=== PATIENT | female | born 1935 | race Caucasian/White ===

== ENCOUNTER 2020-04-23 08:15 | Inpatient (IN) | payer OTHER, MEDICAID ==
[~2020-04-23] VITALS: Ht 157.5 cm; Wt 40.4 kg
[2020-04-23 08:17] VITALS: BP 113/77
[2020-04-23] MEDS ORDERED: DECADRON6 MG PO (08:28)
[2020-04-23] MEDS ORDERED: MELATONIN3 M1 PO (08:28)
[2020-04-23] MEDS ORDERED: KIDS VITAMIN D10 MCG PO (08:29)
[2020-04-23] MEDS ORDERED: ZINC SULFATE220 MG PO (08:30)
[2020-04-23] MEDS ORDERED: VITAMIN C500 M1 PO (08:30)
[2020-04-23] MEDS ORDERED: REQUIP5 MG PO (08:31)
[2020-04-23] MEDS ORDERED: LIDOCAINE PAIN1 EACH (08:31)
[2020-04-23] MEDS ORDERED: PERCOCET 5-3251 EACH PO (08:31)
[2020-04-23] MEDS ORDERED: REMERON 30 MG T30 M1 PO (08:32)
[2020-04-23] MEDS ORDERED: MORPHINE 00.5 MG/1 M PO (08:32)
[2020-04-23] MEDS ORDERED: MIRALAX119 GM PO (08:32)
[2020-04-23] MEDS ORDERED: HYDRALAZINE 2525 MG PO (08:33)
[2020-04-23] MEDS ORDERED: MIRAPEX0.125 MG PO (08:33)
[2020-04-23] MEDS ORDERED: MILK OF MA400 MG/5 M PO (08:33)
[2020-04-23] MEDS ORDERED: LOPERAMIDE2 MG PO (08:33)
[2020-04-23] MEDS ORDERED: CARBIDOPA-LEVO1 EA10 PO (08:34)
[2020-04-23] MEDS ORDERED: NEURONTIN100 MG PO (08:34)
[2020-04-23 08:35] LABS: HEMATOCRIT 37.4 % (37.0-47.0); HEMOGLOBIN 12.3 gm/dL (12.0-15.0); MCH 30.8 pg (26.0-34.0); MCHC 32.9 g/dL (28.0-37.0); MCV 93.6 fL (80.0-100.0); MPV 7.9 fl. (7.2-11.1); NUCLEATED RBCS 0 /100WBC; PLATELET COUNT* 205 thou/uL (150-400); RDW-CV 13.3 % (10.5-14.5); WBC 6.9 thou/uL (4.0-11.0)
[2020-04-23 08:46] LABS: CALCIUM 8.4 mg/dL (8.5-10.1); CREATININE 1.1 mg/dL (0.6-1.3); POTASSIUM 3.3 mmol/L (3.5-5.1)
[2020-04-23 08:51] LABS: ALBUMIN 2.7 g/dL (3.4-5.0); TOTAL BILIRUBIN 0.2 mg/dL (<0.1-1.0); TOTAL PROTEIN 6.7 g/dL (6.4-8.2)
[2020-04-23 09:01] LABS: INFLUENZA A ANTIGEN Negative (Negative); INFLUENZA B ANTIGEN Negative (Negative)
[2020-04-23 09:02] LABS: ABSOLUTE LYMPHOCYTES 0.1 thou/uL (0.8-5.3); ABSOLUTE MONOCYTES 0.1 thou/uL (0.0-1.2); ABSOLUTE NEUTROPHILS 6.8 thou/uL (1.6-8.1); PLATELET ESTIMATE ADEQUATE
[2020-04-23 14:49] VITALS: BP 108/60
--- NOTE | 2020-04-23 15:12 | EKG ---
[place] [address] ELECTROCARDIOGRAM REPORT Name: LONNYSAMEERJose Elias Nehemiah Room: [place] [address] ADM IN [facility]#: [id number] Admission: 04/23/20 Attend Phys: Hi Walden, Discharge: Date of : 39 Date of Service: 04/23/20 1234 Report #: [id number] THIS REPORT FOR: //name// [facility] ED Test Date: 2020-04-23 Test Time: 12:34:14 Pat Name: BRITNEY MUKHERJEE Department: Room: [facility] Gender: F Pastry Cook Helper: ZI : 1935 Requested By: Lee Nichols Order Number: [id number] MD: Raulito Cuevas Measurements Intervals Colona Rate: 77 P: -22 CA: 172 QRS: -41 QRSD: 72 T: 32 QT: 387 QTc: 438 Interpretive Statements Sinus rhythm wandering baseline Abnormal R-wave progression, early transition Inferior infarct, old No previous ECG available for comparison Electronically Signed On 04-23-2020 15:12:49 SENIOR REPORT DEVELOPER by Raulito Cuevas [email or web address] <ELECTRONICALLY SIGNED> By: Raulito Cuevas MD, FAC 04/23/20 1512 1234 1234 Raulito Cuevas MD, [facility] /EPI
[2020-04-23 15:14] VITALS: BP 108/60
[2020-04-23 16:28] VITALS: BP 107/58
--- NOTE | 2020-04-23 17:00 | NUR ---
DR. GUTIERREZ MAKING ROUNDS TODAY STATED HE PUT ORDER IN FOR CONVELESANT PLASMA TO BE GIVING TO PT. HE CALLED [facility] AND GOT CONSENT TO GIVE IT HE STATED TO PUT THE PAPER WORK ON THE CHART AND HE WILL SIGN IT IN AM.
--- NOTE | 2020-04-23 19:10 | NUR ---
PT A&OX2-3, VSS. PT TO UNIT APPROX 1645. REPORT FROM JOSE PICKETT 1617. CONVALESCENT PLASMA ORDERED. CALL REC'D 184 PLASMA READY, TRE RN TO ADMINISTER. PT REQUIRES ASSISTANCE AT MEALS. BILAT HEELS ELEVATED, PT Q2H TURNS FOR SKIN INTEGRITY. IV TO LFA, NS INFUSING. PT REMAINS INCONTINENT OF B/B. PT RESTS IN ROOM WITH CALL LIGHT IN REACH, FALL PRECAUTIONS IN PLACE.
[2020-04-23 20:00] VITALS: BP 113/55
--- NOTE | 2020-04-23 21:12 | NUR ---
THIS RN WAS NOTIFED AT SHIFT CHANGE OF CONVALESCENT PLASMA READY IN BB. I WENT TO GET THE FORMS READY FOR CATHODE MAKER BUT PT DID NOT HAVE ANY STICKERS ON HER BB BAND ON HER WRIST. CALLED TO LAB AND THEY WERE GOING TO SEND SOMEONE DOWN TO EVALUATE WHAT NEXT STEP IS.
[2020-04-23 22:25] VITALS: BP 98/45
[2020-04-24 00:27] VITALS: BP 105/45
[2020-04-24 04:51] VITALS: BP 104/43
[2020-04-24 04:55] LABS: ABSOLUTE LYMPHOCYTES 0.4 thou/uL (0.8-5.3); ABSOLUTE MONOCYTES 0.3 thou/uL (0.0-1.2); ABSOLUTE NEUTROPHILS 4.5 thou/uL (1.6-8.1); BASOPHILS 0.1 %; HEMATOCRIT 31.9 % (37.0-47.0); HEMOGLOBIN 10.9 gm/dL (12.0-15.0); LYMPHOCYTES 7.8 %; MCH 31.5 pg (26.0-34.0); MCHC 34.2 g/dL (28.0-37.0); MCV 92.1 fL (80.0-100.0); MONOCYTES 5.5 %; MPV 7.7 fl. (7.2-11.1); NUCLEATED RBCS 0 /100WBC; PLATELET COUNT* 195 thou/uL (150-400); POLYS 86.6 %; RBC 3.46 mil/uL (4.20-5.00); RDW-CV 12.9 % (10.5-14.5); WBC 5.2 thou/uL (4.0-11.0)
--- NOTE | 2020-04-24 04:55 | NUR ---
PT LYING IN BED AT TIME OF ASSESSMENT, SHE IS AO X 1-2 FROM [facility]. LUNGS CTA WITH NO COUGHT NOTED, PT IS INCONTINENT OF BLADDER. SHE IS NST ON MONITOR. PT HAS FLUIDS INFUSING PER EMAR AND HAD 1 UNIT OF CONVALESCENT PLASMA INFUSED WITH NO PROBLEMS. SHE HAS SLEPT WELL MOST OF THE NIGHT. [facility]
[2020-04-24 05:20] LABS: CALCIUM 8.3 mg/dL (8.5-10.1); CREATININE 0.6 mg/dL (0.6-1.3); POTASSIUM 3.7 mmol/L (3.5-5.1)
[2020-04-24 07:45] VITALS: BP 119/65
[2020-04-24 12:17] VITALS: BP 137/73
--- NOTE | 2020-04-24 12:57 | NUR ---
Nutrition: Pt admitted with COVID. From hospice. Assessed for low BMI. Wt: 89#. No meal intake records. Pt does need assistance with meals. Regular diet. Alb 2.7, prealb 13. Continue assisting with meals, encourage good po intake. RD will order Ensure for added nutrition. Mild risk.
--- NOTE | 2020-04-24 16:27 | NUR ---
WOUND NURSE: RECEIVED REFERRAL TO SEE PATIENT REGARDING PRESSURE INJURIES. SACRUM AND SURROUNDING TISSUES CONTAIN NO OPEN WOUNDS, BUT DOES CONTAIN A MIXTURE OF STAGE 1 AND SUSPECTED DEEP TISSUE INJURIES. CLEANSED WITH SOAP AND WATER, RINSED, AND PATTED DRY. PROTECTED WITH OPTIFOAM AG DRESSING AND MOISTURE BARRIER PASTE TO SKIN OUTSIDE OF BANDAGED AREA. LEFT HEEL CONTAINS AN INTACT BLISTER FILLED WITH PURPLISH RED DRAINAGE. THIS ALSO PRESENTS A SDTI. CLEANSED WITH SOAP AND WATER, RINSED, PATTED DRY. APPLIED OPTIFOAM GENTLE AG AND WRAPPED WITH KERLEX AND SECURED WITH TAPE. PROVIDED HEELMEDIX BOOT TO OFFLOAD THIS WOUND. 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 THIS OPEN TO AIR AT THIS TIME, BUT PROTECTED ON PILLOWS, AND PLUSH BLANKET. PATIENT IS ON A TURN SCHEDULE. PATIENT IS PLEASANTLY CONFUSED AND NONTEACHEABLE.
[2020-04-24 16:46] VITALS: BP 106/49
--- NOTE | 2020-04-24 17:00 | NUR ---
SPOKE WITH MAMI, PTS RAGINI AND VIOLETA. PT.LIVES IN LTC AT [facility]. SHE IS ON HOSPICE WITH [facility]. SHE IS WC BOUND. IS NORMALLY ALERT AND ORIENTED PER RAGINI. SHE IS A RETIRED NURSE. SHE DOES NOT WEAR O2 AT LTC. EATS FAIRLY WELL. SHE INTENDS FOR HER TO RETURN TO [facility] AT DISCHARGE AND WANTS HER TO SIGN BACK ON WITH HOSPICE. THE REASON SHE SENT HER TO HOSPITAL WAS GRANDMA FELT HER TONUGE WAS SWELLING. DISCUSSED WOUND CARE CONSULT. SHE SAID THEY HAD BOUGHT A FAIRLY EXPENSIVE CUSHION FOR HER WC TO PREVENT PRESSURE SORES. SHE WILL INQUIRE AT [facility] IF THEY ARE USING IT.
--- NOTE | 2020-04-24 18:38 | NUR ---
ASSESSMENT DOCUMENTED. MEDS GIVEN PER E-MAR. IV PATENT. NO REPORTS OF PAIN. WOUND CARE CONSULTED FOR EXISTING WOUNDS. PT PULLED OUT IV, NEW ONE STARTED. ISOLATION MAINTAINED.
[2020-04-25] VITALS: BP 104/45
[2020-04-25 04:00] VITALS: BP 104/45
--- NOTE | 2020-04-25 06:29 | NUR ---
ASSUMED PT'S CARE AT ABOUT 1999. AWAKE, ORIENTED TO SELF. REPEATS MOST STATEMENTS. ABLE TO ANSWER SIMPLE QUESTIONS LIKE "HOW ARE YOU". MEDS GIVEN PER EMAR. PT ABLE TO VERBALIZE "OUCHIE" WHEN IN PAIN. TURNED THIS SHIFT. FALL PRECAUTION IN PLACE. NEW IV TO LFA 22G SL. WILL CONTINUE TO MONITOR.
[2020-04-25 13:23] VITALS: BP 106/65
[2020-04-25 17:09] VITALS: BP 120/48
--- NOTE | 2020-04-25 18:38 | NUR ---
PT AWAKE IN BED. CONFUSED. PT REMAINS ON O2. PT A BIT RESTLESS AND MOVING AROUND IN BED. PT HAS A BOOT ON HER LEFT FOOT. ASSESSMENT CHARTED. WILL CONTINUE TO MONITOR.
[2020-04-25 21:00] VITALS: BP 112/62
[2020-04-26 00:54] VITALS: BP 118/67
[2020-04-26 04:46] VITALS: BP 132/63
--- NOTE | 2020-04-26 05:45 | NUR ---
PT Q2 TURN. ALERT TO SELF, CAN SWALLOW PILLS AND DRINK FLUIDS WELL. INCONTINENT OF URINE. 2L-O2. RECEIVED ALL MEDS SCHEDULED. PRAFO BOOT IN PLACE. WOUNDS CHARTED, PICS IN CHART. MAX ASSIST FOR ACTIVITIES, FEEDER.
[2020-04-26 08:00] VITALS: BP 135/90
[2020-04-26] MEDS ORDERED: DECADRON6 MG PO (09:41)
[2020-04-26] MEDS ORDERED: ACETAMINOPHEN325 M1 PO (09:41)
[2020-04-26] MEDS ORDERED: LEVOFLOXACIN750 MG PO (09:41)
--- NOTE | 2020-04-26 11:34 | NUR ---
MESSAGE LEFT FOR PATIENTS GRAND DAUGHTER TO CALL BACK TO INFORM PT GOING BACK [facility]. THEN CALLED FAMILY CELL. INFORMED PT WOULD BE LEAVING THE HOSPITAL AND GOING BACK TO [facility]. WILL TRY AND ARRANGE A CALL LATER TODAY BEFORE DISCHARGE.
[2020-04-26 12:00] VITALS: BP 144/57
--- NOTE | 2020-04-26 15:32 | NUR ---
SPOKE TO NIEVES ABEBE AT [facility]. INFORMED SHE IS NOT ABLE TO COME BACK TO COVID UNIT TO EVAL PATIENT. WILL NEED TO EVAL AT [facility]. TRNANSPORTATION BEING ARRANGED AT THIS TIME. DRESSINGS CHANGED AND DOCUMENTED.
--- NOTE | 2020-04-26 15:54 | NUR ---
PT REMAINS ORIENTED TO SELF. VSS. ABEBE AT [facility] AWARE PT IS LEAVING SHORTLY TO [facility]. REPORT GIVEN TO NIEVES POTTS AT [facility]. AMBULANCE TRANSFTER HAS BEEN ARRANGED. GRAND DAUGHTER AWARE PT IS MOVING TODAY. DRESSINGS CHANGED. PT REMAINS ON 2L O2. PT IS CONFUSED AND FORGETFUL AT TIMES.
--- NOTE | 2020-04-27 09:00 | NUR ---
LATE ENTRY FOR 04/26/20 AT 0900-CALL FROM NURSING BUTT WELDER TO THIS ASKING ME TO CALL [facility] . PT.HAD DISCHARGE ORDERS AND THEY COULD NOT GET AHOLD OF ANYONE. CALLED [phone]. HAD TO HOLD FOR QUITE AWHILE. GOT A HOLD OF WRONG UNIT THAT PT.LIVED ON. THEY TRANSFERRED ME TO KATLYN, THE NURSE. HE SAID PT.COULD RETURN WITH HOSPICE. NURSING TO COPY CHART AND RN TO CALL REPORT TO ALEE ON [facility]. INFORMED NSG.BUTT WELDER.
== END 2020-04-26 16:25 | disposition hospice, home (50) | DRG 871 ==
LOC: M.ERS 08:15 → M.ORTHSURG 10:49 → M.TBA-ER 10:49 → M.ORTHSURG 16:46
PROVIDERS: Emergency Medicine Emergency Medical Services; ADMIT Internal Medicine; ATTEND Internal Medicine
PROC: XW13325 Transfusion of Convalescent Plasma (Nonautologous) into Peripheral Vein, Percutaneous Approach, New Technology Group 5 (ICD-10-PCS; principal; 2020-04-23)
DX: A41.89 Other specified sepsis (principal); U07.1 COVID-19; J12.82 Pneumonia due to coronavirus disease 2019; G93.40 Encephalopathy, unspecified; F32.9 Major depressive disorder, single episode, unspecified; G47.00 Insomnia, unspecified; G89.4 Chronic pain syndrome; G62.9 Polyneuropathy, unspecified; G20 Parkinson's disease; Z66 Do not resuscitate; I10 Essential (primary) hypertension; K59.00 Constipation, unspecified; G30.9 Alzheimer's disease, unspecified; F02.80 Dementia in other diseases classified elsewhere, unspecified severity, without behavioral disturbance, psychotic disturbance, mood disturbance, and anxiety; Z88.6 Allergy status to analgesic agent; Z88.0 Allergy status to penicillin; Z88.2 Allergy status to sulfonamides; Z88.8 Allergy status to other drugs, medicaments and biological substances